=== PATIENT | male | born 1985 | race Caucasian/White ===

== ENCOUNTER 2018-04-26 14:39 | Outpatient (CLI) | payer BC, SELFPAY ==
--- NOTE | 2018-04-26 14:38 | DI.RAD_ITS ---
SYMPTOM/DIAGNOSIS: FOOT PAIN LEFT FOOT: 04/26 Three views were obtained. No bony or soft tissue abnormality seen.
== END 2018-04-26 14:59 ==
PROVIDERS: PCP Family Medicine; Visit Provider Physician Assistant
DX: M79.672 Pain in left foot (principal)
CPT/HCPCS: 73630

== ENCOUNTER 2018-05-03 01:28 | Outpatient (CLI) | payer BC, SELFPAY ==
--- NOTE | 2018-05-03 15:50 | DI.MRI_ITS ---
SYMPTOM/DIAGNOSIS: LT FOOT PAIN, ? STRESS FRACTURE M79.672 MRI LEFT FOOT: Comparison is made with plain films dated 26 Apr 2018. T1 and FS T2 axial, sagittal and coronal sequences were performed of the fore foot. The exam is limited by motion and equipment limitations. No fracture is identified. There is no evidence of fluid collection. IMPRESSION: Limited exam. No evidence of a fracture.
== END 2018-05-03 01:48 ==
PROVIDERS: PCP Family Medicine; Visit Provider Student in an Organized Health Care Education/Training Program
DX: M79.672 Pain in left foot (principal)
CPT/HCPCS: 73718

== ENCOUNTER 2018-07-27 11:54 | Day surgery (SDC) | payer BC, SELFPAY ==
[2018-07-27 12:14] VITALS: BP 112/73; PULSE 81; RESP 16; TEMP 35.3; O2SAT 99
[2018-07-27] MEDS: Lactated Ringers 1,000 ML 80 ML IV (12:43)
[2018-07-27] MEDS: Bupivacaine 0.25% Pres-Free 30 ML VIAL ×2 (13:22→13:52)
[2018-07-27] MEDS: Bupivacaine LIPOSOME/PF 133 MG/10 ML VIAL IJ (13:52)
--- NOTE | 2018-07-27 14:22 | W.PM.DSUDISC ---
Discharge Plan Disposition Patient Disposition: HOME Condition: Good Discharge Details Reason For Visit: Left Foot Perez's Neuroma Attending Provider: Jose Joyner Primary Care Provider: Kelli Rojas Home Meds and New Rx's Prescriptions: New hydrocodone-acetaminophen 5-325 mg tablet 1 tab PO Q6H PRN PRN (Reason: pain) Qty: 8 RF: 0 ibuprofen 600 mg tablet 600 mg PO TID PRNQty: 60 RF: 3 acetaminophen 500 mg capsule 500 mg PO Q6H PRN PRN (Reason: pain) Qty: 60 RF: 0 Discharge Instructions Additional Instructions: Activity: You may weight bear as tolerated using crutches for support. You should keep the leg elevated as much as possible. You may wiggle your toes and move your hip and knee. You should wear the post-op shoe when you are up and mobilizing, but may remove it when not and move your ankle as tolerated. Dressings: You should keep the initial dressing on for at least 3 days. After 3 days, you may remove it and get it wet in the shower. You should keep it covered with a light gauze dressing or wrap or bandaid for the first week. Medications: - You should take Tylenol and Ibuprofen around the clock for baseline pain. - You have been prescribed a stronger narcotic, Hydrocodone, for breakthrough pain. Follow-up: 10-14 days Referrals: Jose Joyner MD [ [facility]FF PHYSICIAN] - Activity:: Elevate Remove Dressings/Wound Care:: 72 hours Shower/Bathe:: 72 hours Diet:: As Tolerated Discharge Orders Discharge Orders: Discharge Order (Routine); Ordered 07/27/18 Ordered By: Jose Joyner DS: Diagnosis Discharge Diagnosis (1) Perez's neuroma of left foot: Status: Acute
[2018-07-27 14:45] VITALS: BP 124/75; PULSE 72; RESP 16; TEMP 36.1; O2SAT 98
--- NOTE | 2018-07-28 09:01 | ROE_ITS ---
REPORT OF OPERATIVE PROCEDURE DATE OF PROCEDURE July 27, 2018 PREOPERATIVE DIAGNOSIS Perez's neuroma left third webspace. POSTOPERATIVE DIAGNOSES Intermetatarsal bursitis. Interdigital neuritis, left foot third webspace. Ganglion cyst. SURGERY Release of the intermetatarsal ligament of the left foot third webspace, decompression of ganglion cy st, intermetatarsal debridement. SURGEON Jose Joyner M.D. FINDINGS There was notable inflammatory change seen around the intermetatarsal space at the level of the inter metatarsal ligament. There was a very small, probably 2 to 3 mm ganglion cyst arising over the medial aspect of the fourth MTP joint. This was decompressed and excised. The bursal tissue and inflammator y tissue in this area at the level of the intermetatarsal ligament was debrided. The intermetatarsal ligament was released, exposing the common digital nerve. There was notable inflammatory change seen in this area, but not true neuroma. The wound was palpated. No plantar fat was removed. There was no mass structure seen. The wound was then thoroughly irrigated and closed. ESTIMATED BLOOD LOSS 5 cc COMPLICATIONS None. ANESTHESIA MAC with local anesthetic. DISPOSITION The patient was awakened from anesthesia and taken to the Same Day Surgery area in stable condition. INDICATIONS FOR PROCEDURE Jitendra is a 33-year-old who I have seen for persistent left foot pain. This pain was a plantar pain betw een the third and fourth metatarsal heads. We tried a host of conservative options, but he continued to have this pain. While he did not have symptoms into the toes, the location of this pain both on hi s recollection, also on clinical examination, was between the metatarsal heads of the plantar surface of the third webspace of the left foot. Given the constellation of symptoms, I did offer surgical in tervention. I reviewed the risks of the procedure to include bleeding, infection, pain, stiffness, co ntinued symptoms, damage to nerves and vessels, including persistent numbness. Despite these risks, juana diamond elected to proceed. PROCEDURE DESCRIPTION Jitendra is a 33-year-old who was greeted in the preoperative holding area. His identity was confirmed and the correct side was identified and marked. The consent was reviewed with the patient and signed. Th e history and physical was updated. He was taken back to the Operating Room and placed in the supine position. All bony prominences were padded. Prophylactic antibiotics in the form of cefazolin were a dministered. The left foot was prepped with ChloraPrep and draped in a standard fashion. A timeout wa s performed for safe surgery. A large field block was administered starting proximal to the area of incision and then also working deep to gather both the dorsal and the plantar nerves supplying the third webspace. A midline incision was then made between the third and fourth metatarsals. This was made sure to stay in the midline, although the space between his metatarsals between the third and fourth was quite li mited. The skin was incised sharply. The deep tissues were dissected bluntly and there were notable c rossing branches both of nerve and vessel origin. These were attempted to be protected as much as pos asuncion. The deeper tissues were then opened up bluntly with a finger and with tenotomy scissors. This was able to expose the space between the third and fourth metatarsals. The lumbricals in this area we re very prominent and actually quite in the way and they were retracted off to the side. With these r etracted, we then had excellent visualization of the deeper structures. There was notable inflammator y change seen around the intermetatarsal ligament. The intermetatarsal ligament also seemed to have t hese connections to the more superficial structures including the lumbricals. It had a very broad in the plantar dorsal direction insertion. There was also a very small ganglion, which seemed to be milla ing from the fourth metatarsal phalangeal joint. This was approximately 2 to 3 millimeters in diamete r. In attempts to dissect this out, it was ruptured. This tissue was then removed. The intermetatars al ligament was fully identified. The nerve and vessels underneath it were protected and the intermet atarsal ligament was released completely. This allowed further exposure of the plantar structures. Th e nerve was investigated, which showed some irritation and inflammatory change. However, there was no true neuroma seen. There was again some fatty tissue in this area. All plantar fat was retained and none was removed. There was no true mass seen. The tissue around the intermetatarsal ligament was juan rided. The wound was then thoroughly irrigated. There was no significant bleeding. The deep tissues w ere closed with a #3-0 Vicryl. The skin was then closed with a #4-0 Monocryl. The wound was dressed w ith Xeroform, 4x4s, Kerlix and Chuck wrap. He was placed into a postop shoe. At the end of the case all counts were correct.
== END 2018-07-27 15:36 | disposition home or self-care (01) ==
PROVIDERS: PCP Nurse Practitioner Family; Visit Provider Student in an Organized Health Care Education/Training Program
PROC: (CPT 28080; principal; 2018-07-27 13:30)
DX: M77.52 Other enthesopathy of left foot and ankle (principal); M67.472 Ganglion, left ankle and foot; G57.82 Other specified mononeuropathies of left lower limb; M79.672 Pain in left foot
CPT/HCPCS: 28080; 28090; E0114; J0690; J1100; J1885; J2250; J2405; J3010

== ENCOUNTER 2018-11-01 22:17 | Emergency (ER) | payer BC, SELFPAY ==
[2018-11-01 22:20] VITALS: BP 124/85; PULSE 79; RESP 18; TEMP 36.6; O2SAT 97
[2018-11-01] MEDS: Balanced Salt Solution 15 ML BTL (22:48)
[2018-11-01] MEDS: Fluorescein STRIPS 100/BOX 1 MG (22:49)
[2018-11-01] MEDS: Tetracaine 0.5% 4 ML BTL (22:49)
[2018-11-01] MEDS: Erythromycin Ophth Oint 3.5 GM TUBE OS (22:56)
--- NOTE | 2018-11-01 23:02 | W.ED.GENAD ---
Discharge Plan Disposition Patient Disposition: HOME Discharge Details Chief Complaint: EyeProblem Clinical Impression: Corneal abrasion, left Primary Care Provider: Caitlin Galan ED Provider: Terence Vanegas Home Meds and New Rx's Prescriptions: New erythromycin 5 mg/gram (0.5 %) ointment 0.5 inch OP QID Qty: 3.5 RF: 0 Continued ibuprofen 600 mg tablet 600 mg PO TID PRNQty: 60 RF: 3 Discontinued acetaminophen 500 mg capsule 500 mg PO Q6H PRN PRN (Reason: pain) Qty: 60 RF: 0 Discharge Instructions Instructions: Corneal Abrasion (ED) Additional Instructions: Apply 0.5 inch ribbon of antibiotic ointment to your affected eye 4 times a day for the next 7 days. Please contact print support specialist to arrange follow-up. Call tomorrow. Return to the ER for any worsening or new concerning symptoms. For your record, your last tetanus booster was 2018. Referrals: [facility] [Outside] Medical Decision Making 33-year-old male presents 1 day after hit in left eye with tree branch with left eye sensation of foreign body and discomfort with photophobia. No visual changes. Left eye examined with fluorescein stain under Vera lamp and reveals small corneal abrasion. Globe normal to palpation and negative ray sign. Plan to treat with erythromycin ointment which I will initiate tonight. I obtained outside hospital records, tetanus is up-to-date given 2017. I will have him follow-up with ophthalmology. Referral provided to [facility]. I encouraged him to return to the ED for any worsening or new concerning symptoms. HPI General Mode of arrival: ambulatory. Date/Time Provider Initiated Documentation: 11/01/18 22:30. Limitations to Documentation: no limitations. Information obtained by: patient. HPI Narrative: 33-year-old male presents with chief complaint of left eye injury. Patient notes that yesterday he was struck in the left eye with a tree branch. He had some discomfort of his eye last night. Today he had a period where discomfort was less severe but symptoms are worse this evening. Patient notes it feels like he has a foreign body in his eye. Discomfort is moderate and worse with bright light. No blurred vision or visual changes. He has had some tearing from his eye. Related Data Home Medications Medication Instructions Recorded Confirmed ibuprofen 600 mg PO TID PRN #60 tab 07/27/18 11/01/18 erythromycin 0.5 inch OP QID #3.5 gm 11/01/18 Previous Rx's Medication Instructions Recorded ibuprofen 600 mg PO TID PRN #60 tab 07/27/18 erythromycin 0.5 inch OP QID #3.5 gm 11/01/18 Allergies Allergy/AdvReac Type Severity Reaction Status Date / Time No Known Allergies Allergy Unverified 11/01/18 22:23 General Stated Complaint: EyeProblem DON: 4 Review of Systems Eyes Reports as per HPI [facility] Social History Smoking/Tobacco Use Status: Never Alcohol Intake: current Alcohol Intake frequency: a few times a month Drug use: Never Do you feel safe at home: Yes Do you feel safe in your relationship?: Yes Exam Const General: cooperative and healthy appearing Orientation: alert and awake [facility] General nose exam: external nose normal Face and sinus: no abrasions, no ecchymosis and no lacerations Eyes Periorbital: periorbital findings normal Eyelids: eyelids normal Conjunctivae: conjunctivae normal Cornea: corneas abnormal on the left fluorescein used and abrasion punctate and at the following clock position (5:00); with no foreign body noted and without ulcerations Pupils: PERRL, accommodation normal and pupil size bilaterally 3 EOM: EOM intact bilaterally Other: negative ray sign Skin Wounds: no wounds (face) Course Vital Signs Temperature 36.6 C 11/01/18 22:20 Pulse 79 11/01/18 22:20 Respiratory Rate 18 11/01/18 22:20 Blood Pressure 124/85 11/01/18 22:20 Pulse Oximetry 97 11/01/18 22:20 Temperature 36.6 C 11/01/18 22:20 Temperature Source Skin 11/01/18 22:20 Pulse 79 11/01/18 22:20 Respiratory Rate 18 11/01/18 22:20 Respiratory Effort Non-Labored 11/01/18 22:24 Blood Pressure 124/85 11/01/18 22:20 Blood Pressure Position Sitting 11/01/18 22:20 Pulse Oximetry 97 11/01/18 22:20 Oxygen Delivery Method Room Air 11/01/18 22:20 Oxygen Flow Rate 0 11/01/18 22:20 Pain Level 4 11/01/18 22:20
--- NOTE | 2018-11-01 23:07 | ED.GENADUL_ITS ---
Discharge Plan Disposition Patient Disposition: HOME Discharge Details Chief Complaint: EyeProblem Clinical Impression: Corneal abrasion, left Primary Care Provider: Caitlin Galan ED Provider: Terence Vanegas Home Meds and New Rx's Prescriptions: New erythromycin 5 mg/gram (0.5 %) ointment 0.5 inch OP QID Qty: 3.5 RF: 0 Continued ibuprofen 600 mg tablet 600 mg PO TID PRNQty: 60 RF: 3 Discontinued acetaminophen 500 mg capsule 500 mg PO Q6H PRN PRN (Reason: pain) Qty: 60 RF: 0 Discharge Instructions Instructions: Corneal Abrasion (ED) Additional Instructions: Apply 0.5 inch ribbon of antibiotic ointment to your affected eye 4 times a day for the next 7 days. Please contact eyewear manufacturing supervisor to arrange follow-up. Call tomorrow. Return to the ER for any worsening or new concerning symptoms. For your record, your last tetanus booster was 2018. Referrals: [facility] [Outside] Medical Decision Making 33-year-old male presents 1 day after hit in left eye with tree branch with left eye sensation of foreign body and discomfort with photophobia. No visual changes. Left eye examined with fluorescein stain under Vera lamp and reveals small corneal abrasion. Globe normal to palpation and negative ray sign. Plan to treat with erythromycin ointment which I will initiate tonight. I obtained outside hospital records, tetanus is up-to-date given 2017. I will have him follow-up with ophthalmology. Referral provided to [facility]. I encouraged him to return to the ED for any worsening or new concerning symptoms. HPI General Mode of arrival: ambulatory . Date/Time Provider Initiated Documentation: 11/01/18 22:30 . Limitations to Documentation: no limitations . Information obtained by: patient . HPI Narrative: 33-year-old male presents with chief complaint of left eye injury. Patient notes that yesterday he was struck in the left eye with a tree branch. He had some discomfort of his eye last night. Today he had a period where discomfort was less severe but symptoms are worse this evening. Patient notes it feels like he has a foreign body in his eye. Discomfort is moderate and worse with bright light. No blurred vision or visual changes. He has had some tearing from his eye. Related Data Home Medications Medication Instructions Recorded Confirmed ibuprofen 600 mg PO TID PRN #60 tab 07/27/18 11/01/18 erythromycin 0.5 inch OP QID #3.5 gm 11/01/18 Previous Rx's Medication Instructions Recorded ibuprofen 600 mg PO TID PRN #60 tab 07/27/18 erythromycin 0.5 inch OP QID #3.5 gm 11/01/18 Allergies Allergy/AdvReac Type Severity Reaction Status Date / Time No Known Allergies Allergy Unverified 11/01/18 22:23 General Stated Complaint: EyeProblem DON: 4 Review of Systems Eyes Reports as per HPI [facility] Social History Smoking/Tobacco Use Status: Never Alcohol Intake: current Alcohol Intake frequency: a few times a month Drug use: Never Do you feel safe at home: Yes Do you feel safe in your relationship?: Yes Exam Const General: cooperative and healthy appearing Orientation: alert and awake [facility] General nose exam: external nose normal Face and sinus: no abrasions, no ecchymosis and no lacerations Eyes Periorbital: periorbital findings normal Eyelids: eyelids normal Conjunctivae: conjunctivae normal Cornea: corneas abnormal on the left fluorescein used and abrasion punctate and at the following clock position (5:00); with no foreign body noted and without ulcerations Pupils: PERRL, accommodation normal and pupil size bilaterally 3 EOM: EOM intact bilaterally Other: negative ray sign Skin Wounds: no wounds (face) Course Vital Signs Temperature 36.6 C 11/01/18 22:20 Pulse 79 11/01/18 22:20 Respiratory Rate 18 11/01/18 22:20 Blood Pressure 124/85 11/01/18 22:20 Pulse Oximetry 97 11/01/18 22:20 Temperature 36.6 C 11/01/18 22:20 Temperature Source Skin 11/01/18 22:20 Pulse 79 11/01/18 22:20 Respiratory Rate 18 11/01/18 22:20 Respiratory Effort Non-Labored 11/01/18 22:24 Blood Pressure 124/85 11/01/18 22:20 Blood Pressure Position Sitting 11/01/18 22:20 Pulse Oximetry 97 11/01/18 22:20 Oxygen Delivery Method Room Air 11/01/18 22:20 Oxygen Flow Rate 0 11/01/18 22:20 Pain Level 4 11/01/18 22:20
--- NOTE | 2018-11-02 16:53 | NUR.NOTE ---
Nursing Note: Faxed note to [facility] for follow up. Yadira Sewell Fax [phone]
== END 2018-11-01 23:10 | disposition home or self-care (01) ==
PROVIDERS: Emergency Provider Student in an Organized Health Care Education/Training Program; PCP Nurse Practitioner Family
DX: S05.02XA Injury of conjunctiva and corneal abrasion without foreign body, left eye, initial encounter (principal); W22.8XXA Striking against or struck by other objects, initial encounter
CPT/HCPCS: 99283

== ENCOUNTER 2021-05-24 15:42 | Outpatient (CLI) | payer BC, SELFPAY ==
--- NOTE | 2021-05-24 | DI.RAD_ITS ---
Exam(s) XR FOOT LT COMPLETE EXAM: XR FOOT LT COMPLETE CLINICAL HISTORY: PAIN LT FOOT M79.672. TECHNIQUE: 2D digital imaging was performed of the left foot. Three images were obtained. AP, obli que and lateral views were obtained. COMPARISON: CR XR foot LT complete from 04/26/2018 FINDINGS: BONES: No acute fracture is present. No bony destructive lesion is seen. JOINTS: No dislocation present. SOFT TISSUE: Normal. IMPRESSION: Unremarkable radiographs of the left foot. DATA REPOSITORY: RADIATION DOSE DELIVERED:
--- NOTE | 2021-05-24 15:00 | DI.RAD_ITS ---
Exam(s) XR ANKLE LT COMPLETE EXAM: XR ANKLE LT COMPLETE CLINICAL HISTORY: PAIN LT ANKLE M25.572 TECHNIQUE: 2D digital imaging was performed of the left ankle. Three images were obtained. AP, lat eral and oblique views were obtained. COMPARISON: No exams were available for comparison FINDINGS: BONES: No acute fracture is present. No bony destructive lesion is seen. JOINTS:The ankle mortise is normally aligned. SOFT TISSUE: Normal. IMPRESSION: Unremarkable radiographs of the left ankle. DATA REPOSITORY: RADIATION DOSE DELIVERED:
== END 2021-05-24 16:02 ==
PROVIDERS: PCP Nurse Practitioner Family; Visit Provider Physician Assistant Medical
DX: M25.572 Pain in left ankle and joints of left foot (principal); M79.672 Pain in left foot
CPT/HCPCS: 73610; 73630

== ENCOUNTER 2021-08-27 12:39 | Emergency (ER) | payer BC, SELFPAY ==
[2021-08-27 12:46] VITALS: BP 109/70; PULSE 97; RESP 16; TEMP 36.8; O2SAT 98
--- NOTE | 2021-08-27 13:00 | DI.RAD_ITS ---
Exam(s) XR PORTABLE CHEST AP EXAM: XR PORTABLE CHEST AP CLINICAL HISTORY: shortness of breath, covid + TECHNIQUE: 2D digital imaging was performed. COMPARISON: CR CHEST 2 VIEWS PA,LAT from 09/15/2014 FINDINGS: LUNGS: Clear. No pleural abnormality seen. HEART: Normal. MEDIASTINUM: Normal. BONES: Unremarkable. IMPRESSION: No acute pulmonary findings. DATA REPOSITORY: RADIATION DOSE DELIVERED:
[2021-08-27 13:18] VITALS: RESP 16
[2021-08-27] MEDS: predniSONE 20 MG TAB 60 MG PO (13:18)
--- NOTE | 2021-08-27 13:38 | ED.GENADUL_ITS ---
Discharge Plan Disposition Patient Disposition: HOME Condition: Stable Discharge Details Clinical Impression: COVID-19 Primary Care Provider: Caitlin Galan ED Provider: Norah Winter Home Meds and New Rx's Prescriptions: New prednisone 20 mg tablet 40 mg PO DAILY Qty: 6 0RF Continued ibuprofen 600 mg tablet 600 mg PO TID PRNQty: 60 3RF Discharge Instructions Instructions: Viral Syndrome (ED) Additional Instructions: Please use the inhaler, 2 puffs every 4-6 hours with spacer Take the prednisone daily, you received a dose today 40 mg Please return with worsening shortness of breath, fever, chest pain, or should you have new or progressing symptoms Stand Alone Forms: Work Release Referrals: Caitlin Galan [Primary Care Provider] - Discharge Data Discharge Date/Time-TO BE ENTERED AT DEPARTURE: 08/27/21 14:21 Medical Decision Making Patient appears well and in no acute distress Given DuoNeb -Prednisone for wheezing No evidence of pneumonia on x-ray per my review and radiology interpretation Return precautions discussed and patient expressed understanding, will continue to isolate as he is still symptomatic from Covid Oxygen 98% on room air, no respiratory no indication for admission Medical Records Medical records reviewed: Yes I reviewed the patient's medical records. Lab Data Lab results reviewed: Yes I reviewed the patient's lab results. HPI General Date/Time Provider Initiated Documentation: 08/27/21 13:05 . HPI Narrative: This 36-year-old male presents with report of shortness of breath and cough. Fever resolved yesterday. History of pneumonia. Been sick since Thursday for the respiratory symptoms, Covid positive on Thursday. Symptoms and at home have. Denies known history of asthma. Denies any hemoptysis. Denies any calf pain or swelling. Denies any pleuritic pain. States the symptoms are exacerbated with walking. Related Data Home Medications Medication Instructions Recorded Confirmed ibuprofen 600 mg tablet 600 mg PO TID PRN #60 tab 07/27/18 08/27/21 prednisone 20 mg tablet 40 mg PO DAILY #6 tab 08/27/21 Previous Rx's Medication Instructions Recorded ibuprofen 600 mg tablet 600 mg PO TID PRN #60 tab 07/27/18 prednisone 20 mg tablet 40 mg PO DAILY #6 tab 08/27/21 Allergies Allergy/AdvReac Type Severity Reaction Status Date / Time cephalexin [From Keflex] AdvReac Hives Unverified 08/27/21 12:54 General Stated Complaint: GenMedical DON: 3 Review of Systems All systems reviewed & are unremarkable except as noted in HPI and below PFSH All Active Problems (Updated 08/27/21 @ 13:41 by AJITH Smith) COVID-19 (Acute) Perez's neuroma of left foot (Acute) Social History Smoking/Tobacco Use Status: Never Smoking risk assessment performed?: Yes Alcohol Intake: current Alcohol Intake frequency: a few times a month Drug use: Never Substance use type: does not use Do you feel safe at home: Yes Do you feel safe in your relationship?: Yes Exam Const General: cooperative, comfortable and no acute distress Eyes Pupils: PERRL Resp Effort & Inspection: normal respiratory effort Auscultation: wheezes Other: No respiratory distress Cardio Rate: regular rate Rhythm: regular rhythm Skin General skin exam: no rashes or lesions noted Neuro General: patient alert and patient oriented x3 Course Vital Signs Vital signs: Vital Signs Temperature 36.8 C 08/27/21 12:46 Pulse 97 H 08/27/21 12:46 Respiratory Rate 16 08/27/21 12:46 Blood Pressure 109/70 08/27/21 12:46 Pulse Oximetry 98 08/27/21 12:46 Temperature 36.8 C 08/27/21 12:46 Temperature Source Oral 08/27/21 12:46 Pulse 97 H 08/27/21 12:46 Respiratory Rate 16 08/27/21 13:18 Respiratory Effort Non-Labored 08/27/21 13:18 Respiratory Depth Normal 08/27/21 13:18 Respiratory Pattern Normal 08/27/21 13:18 Blood Pressure 109/70 08/27/21 12:46 Blood Pressure Position Sitting 08/27/21 12:46 Pulse Oximetry 98 08/27/21 12:46 Oxygen Delivery Method Room Air 08/27/21 12:46 Oxygen Flow Rate 0 08/27/21 12:46 Pain Level 6 08/27/21 12:46 PAWSS Have you Been Recently Intoxicated or Drunk Within the Last 30 days?: No Have you Ever Experienced Previous Episodes of Alcohol Withdrawal?: No Have you ever Experienced Withdrawal Seizures?: No Have you ever Experienced Delirium Tremens(DT)s?: No Have you ever undergone Alcohol Rehabilitation Treatment (i.e, inpt ot outpatient treatment programs)?: No Have you ever Experienced Blackouts?: No Have you ever Combined Alcohol with other Downers within the last 90 days?: No Have you ever Combined Alcohol with any other Substance of Abuse during the last 90 days?: No Positive Blood Alcohol level on Presentation? [PCS.BAL]: No Evidence of Increased Autonomic Activity (i.e. HR>120, tremor, sweating, agitation, nausea)?: No Result: 0
[2021-08-27] MEDS: Albuterol HFA 8 GM 60 PUFF INH IH (13:49)
[2021-08-27] MEDS: Inhaler, Assist Device 1 EACH MC (13:49)
[2021-08-27] MEDS: Albuterol/Ipratropium 3 ML UPD VIAL UPD (13:50)
[2021-08-27 14:23] VITALS: BP 126/7; PULSE 84; RESP 16; TEMP 36.9; O2SAT 96
== END 2021-08-27 14:21 | disposition home or self-care (01) ==
PROVIDERS: Emergency Provider Physician Assistant; PCP Nurse Practitioner Family
DX: U07.1 COVID-19 (principal); R06.02 Shortness of breath
CPT/HCPCS: 94640; 99283; 71045; J7512; J7620

== ENCOUNTER → 2022-03-19 00:38 | Outpatient (CLI) | payer BC, SELFPAY ==
--- NOTE | 2022-03-19 07:00 | DI.MRI_ITS ---
Exam(s) MR LOWER JOINT LT WO EXAM: MR LOWER JOINT LT WO CLINICAL HISTORY: longstanding STJ and ankle pain,M79.672,M25.579. TECHNIQUE: Multiplanar multisequence MRI was performed. COMPARISON: No exams were available for comparison FINDINGS: MR of the ankle was performed according to the usual protocol. There is abnormal signal in the distal tibia anteriorly. There are linear areas of signal abnormalit y present seen on the sagittal, coronal, and axial images suggesting a stress fracture. There is 6 m illimeter subcortical region of signal abnormality with tiny associated cortical defect in the articu lar surface of the central portion of the tibial articular surface. No other significant bony signal abnormality is seen. The ligamentous structures of the ankle are un remarkable and alignment is within normal limits. No tendinous signal abnormality or tendon tear seen. Achilles mechanism appears normal. IMPRESSION: The appearance as described above is suggestive of a stress fracture or occult post-traumatic fractur e of the distal tibia as described above. Please correlate clinically. DATA REPOSITORY:
== END ==
PROVIDERS: PCP Nurse Practitioner Family; Visit Provider Podiatrist Foot & Ankle Surgery
DX: G89.29 Other chronic pain (principal); M79.672 Pain in left foot; R93.89 Abnormal findings on diagnostic imaging of other specified body structures
CPT/HCPCS: 73721